=== PATIENT | female | born 1965 | race Caucasian/White ===

== ENCOUNTER 2019-07-15 06:54 | Day surgery (SDC) | payer MEDICAID ==
[~2019-07-15] VITALS: Ht 160 cm; Wt 86.2 kg
[2019-07-15] MEDS ORDERED: LIDOCAINE 2% 100 MG/5 ML UJET TP ONE (09:33)
[2019-07-15] MEDS ORDERED: fentaNYL 0.05 MG/ML VIAL ONE (09:33)
[2019-07-15] MEDS ORDERED: fentaNYL 0.05 MG/ML VIAL IVP ONE (10:25)
== END 2019-07-15 10:40 | disposition home or self-care (01) ==
LOC: MMU 06:54 → MDS 06:54
PROVIDERS: ATTEND Internal Medicine Gastroenterology
DX: R19.7 Diarrhea, unspecified (principal); E11.9 Type 2 diabetes mellitus without complications; E66.9 Obesity, unspecified; Z88.6 Allergy status to analgesic agent; Z79.84 Long term (current) use of oral hypoglycemic drugs; Z79.899 Other long term (current) drug therapy; Z68.33 Body mass index [BMI] 33.0-33.9, adult; Z90.49 Acquired absence of other specified parts of digestive tract; Z90.710 Acquired absence of both cervix and uterus
CPT/HCPCS: 45380; 88305; J3010

== ENCOUNTER 2022-02-18 22:10 | Inpatient (IN) | payer MEDICAID, OTHER ==
[~2022-02-18] VITALS: Ht 162.6 cm; Wt 72.6 kg
[2022-02-18 22:10] VITALS: BP 117/62
--- NOTE | 2022-02-18 22:10 | NUR ---
TO BED 10 BIBA WITH C/O GENERAL WEAKNESS WHILE AT WORK. PT HAD BEEN ASSISTED TO FLOOR. PT IS NOW VERY DROWSY, ANSWERS QUWSTIONS SLOWLY. SL INACT TO LEFT HAND. PMH : HTN, DM, HIGH CHOLESTEROL
--- NOTE | 2022-02-18 22:39 | NUR ---
Dr. Lewis examining patient.
[2022-02-18] MEDS ORDERED: NACL 0.9% 1,000 ML IV ONE (22:45)
--- NOTE | 2022-02-18 22:49 | NUR ---
EKG DONE, LAB AT BEDSIDE
--- NOTE | 2022-02-18 22:58 | NUR ---
XRAY AT BEDSIDE
--- NOTE | 2022-02-18 22:58 | NUR ---
Dr. Lewis examining patient.
[2022-02-18 23:03] LABS: BASOPHILS # (AUTO) 0.1 K/uL (0.00-0.22); BASOPHILS % (AUTO) 0.9 % (0.0-2.0); EOSINOPHILS # (AUTO) 0.2 K/uL (0-0.4); EOSINOPHILS % (AUTO) 2.3 % (0.0-4.0); LYMPHOCYTES % (AUTO) 26.7 % (20.5-51.1); MEAN CORPUSCULAR HEMOGLOBIN 29 pg (27-31); MEAN CORPUSCULAR HGB CONC 33 g/dL (33-37); MEAN CORPUSCULAR VOLUME 85.5 fL (80-94); MONOCYTES # (AUTO) 0.4 K/uL (0.8-1.0); MONOCYTES % (AUTO) 5.6 % (1.7-9.3); NEUTROPHILS # (AUTO) 4.7 K/uL (1.8-7.7); NEUTROPHILS % (AUTO) 64.5 % (42.2-75.2); PLATELET COUNT (AUTO) 265 K/uL (140-450); RED CELL DISTRIBUTION WIDTH 13.5 % (11.6-13.7); WHITE BLOOD COUNT (AUTO) 7.4 K/uL (4.8-10.8)
[2022-02-18 23:20] LABS: ALBUMIN 3.3 g/dL (3.4-5.0); ANION GAP 11.1 (8-16); ASPARTATE AMINOTRANSFERASE 11 U/L (15-37); CARBON DIOXIDE 27.7 mmol/L (21-32); CHLORIDE 104 mmol/L (98-107); CREATININE 0.8 mg/dL (0.6-1.3); GFR ARICAN-AMERICAN 95 mL/min (>90); GLUCOSE 260 mg/dL (74-106); LIPASE 163 U/L (73-393); POTASSIUM 3.8 mmol/L (3.5-5.1); SODIUM SERUM 139 mmol/L (136-145); TOTAL BILIRUBIN 0.2 mg/dL (0.0-1.0); UREA NITROGEN, BLOOD 13 mg/dL (7-18)
--- NOTE | 2022-02-18 23:23 | NUR ---
BACK TO BED AND MADE COMFORTABLE
[2022-02-19] MEDS ORDERED: VALS40TA3 PO (00:53)
[2022-02-19] MEDS ORDERED: SITA100T8 PO (00:54)
[2022-02-19] MEDS ORDERED: CARV6.25 PO (00:54)
--- NOTE | 2022-02-19 01:00 | NUR ---
RESTING QUIETLY WITH SON AT BEDSIDE
--- NOTE | 2022-02-19 02:00 | NUR ---
RECEIVED PATIENT FROM ER, PATIENT IS AWAKE,ALERT AND ORIENTED. DENIES PAIN AT THIS TIME. NOTED GENERALIZED WEAKNESS. NO ACUTE RESPIRATORY DISTRESS NOTED. SKIN WARM AND DRY TO TOUCH. IV TO THE LEFT HAND #20 INTACT AND PATENT. ORIENTED PT TO MST SET UP. BED IN THE LOWEST AND LOCKED POSITION FOR SAFETY, CALL LIGHT WITHIN REACH. WILL CONTINUE TO MONITOR.
--- NOTE | 2022-02-19 02:00 | NUR ---
Patient will be admitted to care of Partha. Admited to Dr mina. Will go to room 105b. Belongings list completed. Report to Partha NUNEZ.
[2022-02-19 02:53] VITALS: BP 110/53
--- NOTE | 2022-02-19 03:25 | NUR ---
COLLECTED URINE AND SENT TO THE LAB ORDERED.
--- NOTE | 2022-02-19 03:50 | NUR ---
PAGEAspen HERNÁNDEZ FOR ADMITTING ORDERS.
[2022-02-19 03:54] LABS: APPEARANCE,URINE CLEAR (CLEAR); BILIRUBIN,URINE NEGATIVE (NEGATIVE); BLOOD, URINE NEGATIVE (NEGATIVE); COLOR,URINE YELLOW (YELLOW); LEUKOCYTE ESTERASE ,URINE NEGATIVE (NEGATIVE); NITRITE, URINE NEGATIVE (NEGATIVE); UGLUCOSE 2+ (NEGATIVE)
[2022-02-19 04:00] VITALS: BP 109/59
--- NOTE | 2022-02-19 04:59 | NUR ---
PATIENT ASLEEP. BREATHING EVEN AND UNLABORED. CALL LIGHT IN REACH.
--- NOTE | 2022-02-19 05:25 | NUR ---
NO CALL BACK FROM MD, WILL CALL AGAIN.
--- NOTE | 2022-02-19 06:32 | NUR ---
PATIENT IS ASLEEP. ALL NEEDS ATTENDED TO. NO DISTRESS NOTED. SAFETY PRECAUTIONS MAINTAINED DURING THE SHIFT, BED ALARM ON, CALL LIGHT REMAINED WITHIN REACH. WILL ENDORSE CARE TO AM RN.
[2022-02-19 07:04] LABS: BASOPHILS % (AUTO) 0.7 % (0.0-2.0); EOSINOPHILS # (AUTO) 0.1 K/uL (0-0.4); EOSINOPHILS % (AUTO) 2.1 % (0.0-4.0); HEMOGLOBIN 12.6 g/dL (12.0-16.0); LYMPHOCYTES # (AUTO) 2.2 K/uL (2.5-16.5); MEAN CORPUSCULAR HEMOGLOBIN 28 pg (27-31); MEAN CORPUSCULAR HGB CONC 33 g/dL (33-37); MEAN CORPUSCULAR VOLUME 85.7 fL (80-94); MONOCYTES # (AUTO) 0.6 K/uL (0.8-1.0); MONOCYTES % (AUTO) 8.5 % (1.7-9.3); NEUTROPHILS # (AUTO) 3.7 K/uL (1.8-7.7); NEUTROPHILS % (AUTO) 55.7 % (42.2-75.2); PLATELET COUNT (AUTO) 270 K/uL (140-450); RED BLOOD CELL COUNT(AUTO) 4.43 MIL/uL (4.20-5.40); RED CELL DISTRIBUTION WIDTH 13.4 % (11.6-13.7); WHITE BLOOD COUNT (AUTO) 6.7 K/uL (4.8-10.8)
[2022-02-19 07:06] LABS: ANION GAP 8.8 (8-16); CARBON DIOXIDE 29.2 mmol/L (21-32); CREATININE 0.6 mg/dL (0.6-1.3)
--- NOTE | 2022-02-19 07:39 | NUR ---
GOT REPORT FROM THE NIGHT NURSE , PT SLEEPING BREATHING EASY.[id number]
[2022-02-19 08:00] VITALS: BP 100/58
[2022-02-19] MEDS ORDERED: POTASSIUM CHLORIDE 10 MEQ TABER PO PRN (09:15)
[2022-02-19] MEDS ORDERED: MAG SULF 2000 MG/WATER PREMIX 50 ML IV PRN (09:15)
[2022-02-19] MEDS ORDERED: MECLIZINE 25 MG TAB PO PRN ×2 (09:15→13:10)
--- NOTE | 2022-02-19 11:56 | NUR ---
ASSUMED CARE OVER THIS PT AT THIS TIME.
[2022-02-19 12:00] VITALS: BP 110/65
--- NOTE | 2022-02-19 12:14 | NUR ---
PATIENT HAS BEEN SCREENED AND CATEGORIZED MODERATE NUTRITION RISK. PATIENT WILL BE SEEN WITHIN 3-5 DAYS OF ADMISSION. / [address]
--- NOTE | 2022-02-19 12:26 | NUR ---
PT COMPLAINING OF PAIN. DR MONDRAGON MADE AWARE. INFORMED PT THAT IS WORKING ON PAIN MEDS. PT STATED "I HAVE PAIN, BUT I DONT WANT MEDICATION AT THIS TIME, MEDICATION IS A BANDAID. I JUST WANT TO KNOW WHAT IS WRONG WITH ME". INFORMED PT THAT THERE IS A CONSULT WITH NEUROLOGIST. PT STATED "OK THANK YOU".
[2022-02-19] MEDS ORDERED: INSULIN LISPRO SLIDING SCALE 100 UNITS/ML VIAL SUBQ PRN (13:15)
[2022-02-19] MEDS ORDERED: DEXTROSE 50% 50 ML SYR IVP PRN (13:15)
--- NOTE | 2022-02-19 14:26 | NUR ---
ATTEMPTED TO SEE PATIENT FOR PHYSICAL THERAPY EVALUATION HOWEVER HAVING ULTRASOUND DONE AT THIS TIME. WILL FOLLOW UP TOMORROW IF APPROPRIATE; RN AWARE.
--- NOTE | 2022-02-19 14:27 | NUR ---
DC PLANNING: THE PATIENT PRESENTED FROM HOME WITH C/O PROGRESSIVE GENERALIZED WEAKNESS AND POSSIBLE SYNCOPAL EPISODE. H/O DM, GLUCOSE 260, TROPONIN WNL'S. EKG NEGATIVE FOR ACUTE ISCHEMIA, CT HEAD NEGATIVE FOR FINDINGS, ORDER FOR NEUROLOGY CONSULT. CM SPOKE WITH THE PATIENT AND HER SON DAYANARA AT BEDSIDE AND CONFIRMED HER ADDRESS AND PHONE NUMBER. SHE LIVES IN A SINGLE STORY HOUSE WITH HER SON AND IS INDEPENDENT IN ALL ACTIVITIES. HAS DME OF A GLUCOMETER AND SELF ADMINISTERS A WEEKLY INJECTION FOR HER DIABETES. 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 NO H/O HOME HEALTH OR HEALTH ISSUES ASIDE FROM DM , THE PATIENT SEES HER PMD ODESSA LIRA REGULARLY AND SAW HIM A WEEK AGO. DC NEEDS TO BE DECIDED BASED ON FINDINGS, ANTICIPATE THAT THE PATIENT WILL RETURN HOME WITH FAMILY. CM WILL FOLLOW.
--- NOTE | 2022-02-19 15:58 | NUR ---
WENT TO CHECK ON PT. PT RESTING AT THIS TIME. RESPIRATIONS ARE EVEN AND UNLABORED. WILL CONTINUE TO MONITOR.
[2022-02-19 16:00] VITALS: BP 110/52
[2022-02-19] MEDS: BLOOD GLUCOSE MONITORING 1 DEV DEV FS SCH ×2 (17:23→21:28)
--- NOTE | 2022-02-19 17:24 | NUR ---
PT BLOOD GLUCOSE WAS 167. INFORMED PT THAT PER SLIDING SCALE, INSULIN COVERAGE NEEDED. PT REFUSED. 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 IT ANTAGONIZES THE BODY. I DONT WANT IT".
--- NOTE | 2022-02-19 19:33 | NUR ---
ENDORSED PT TO AS400 PROGRAMMER NURSE FOR CONTINUITY OF CARE. PT IS STABLE.
--- NOTE | 2022-02-19 19:34 | NUR ---
RECD. RESTING IN BED, AWAKE, A/OX4. CONVERSING WITH VISITOR AT THE BEDSIDE. RESPIRATION EVEN AND UNLABORED. IV SALINE LOCK AT THE LEFT HAND G20, PATENT AND INTACT. SAFETY MEASURES ENFORCED. BED IN THE LOWEST POSITION, SIDE RAILS UP AND CALL LIGHT IN REACH. INSTRUCTED TO CALL NURSE WHEN NEEDING HELP TO GET OUT OF BED. VERBALIZED UNDERSTANDING. ON PURE WICK CONNECTED TO SUCTION MACHINE DRAINING CLEAR YELLOW URINE. DENIES PAIN 0/10.
[2022-02-19 20:00] VITALS: BP 125/67
[2022-02-19] MEDS: carvediloL 6.25 MG TAB PO SCH (21:00)
--- NOTE | 2022-02-19 21:34 | NUR ---
SCHEDULED MEDICATION ADMINISTERED. REFUSED HUMALOG SLIDING SCALE. EXPLAINED ITS IMPORTANCE BUT INSISTED SHE WANTS TO JUST TAKE JANUVIA.
[2022-02-20] VITALS: BP 110/57
--- NOTE | 2022-02-20 | NUR ---
SLEEPING COMFORTABLY IN BED, RESPIRATION EVEN AND UNLABORED, CALL LIGHT IN REACH.
[2022-02-20 04:00] VITALS: BP 114/66
--- NOTE | 2022-02-20 04:00 | NUR ---
VITAL SIGN REMAIN STABLE. SINUS RHYTHM ON TELE MONITORING.
[2022-02-20] MEDS: BLOOD GLUCOSE MONITORING 1 DEV DEV FS SCH ×4 (06:52→21:24)
--- NOTE | 2022-02-20 06:52 | NUR ---
BS -188. REFUSED HUMALOG FOR INSULIN COVERAGE. ASYMPTOMATIC.
--- NOTE | 2022-02-20 07:15 | NUR ---
RECEIVED REPORT FROM ELECTRICAL ACCESSORIES II ASSEMBLER NURSE FOR CONTINUITY OF CARE, POC DISCUSSED. PT IS ASLEEP IN BED WITH NO ACUTE S/S OF DISTRESS, ON RA WITH CHEST RISING AND FALLING EVEN AND UNLABORED. IV ON LEFT HAND 20G SALINE LOCK. ON TELE MONITOR, SR. ALL SAFETY MEASURES IN PLACE, CALL LIGHT WITHIN REACH. WILL CONTINUE TO MONITOR.
--- NOTE | 2022-02-20 07:15 | NUR ---
ENDORSED TO AM SHIFT NURSE FOR CONTINUITY OF CARE.
[2022-02-20 07:28] LABS: BASOPHILS % (AUTO) 0.6 % (0.0-2.0); EOSINOPHILS # (AUTO) 0.2 K/uL (0-0.4); EOSINOPHILS % (AUTO) 2.2 % (0.0-4.0); HEMATOCRIT 38.4 % (36-48); HEMOGLOBIN 12.7 g/dL (12.0-16.0); LYMPHOCYTES # (AUTO) 2.6 K/uL (2.5-16.5); LYMPHOCYTES % (AUTO) 33.9 % (20.5-51.1); MEAN CORPUSCULAR HEMOGLOBIN 29 pg (27-31); MEAN CORPUSCULAR HGB CONC 33 g/dL (33-37); MEAN CORPUSCULAR VOLUME 86.2 fL (80-94); MONOCYTES # (AUTO) 0.4 K/uL (0.8-1.0); MONOCYTES % (AUTO) 5.5 % (1.7-9.3); NEUTROPHILS # (AUTO) 4.4 K/uL (1.8-7.7); NEUTROPHILS % (AUTO) 57.8 % (42.2-75.2); PLATELET COUNT (AUTO) 266 K/uL (140-450); RED BLOOD CELL COUNT(AUTO) 4.45 MIL/uL (4.20-5.40); RED CELL DISTRIBUTION WIDTH 13.7 % (11.6-13.7); WHITE BLOOD COUNT (AUTO) 7.7 K/uL (4.8-10.8)
[2022-02-20 08:00] VITALS: BP 120/64
[2022-02-20 08:03] LABS: ANION GAP 9.1 (8-16); CREATININE 0.8 mg/dL (0.6-1.3); MAGNESIUM 1.9 mg/dL (1.8-2.4); PHOSPHORUS 3.2 mg/dL (2.5-4.9); POTASSIUM 4.1 mmol/L (3.5-5.1)
--- NOTE | 2022-02-20 09:00 | NUR ---
ROLY MEDICATION ADMINISTERED PER MD ORDER, PT TOLERATED ADMINISTRATION. DM MEDICATION NOT ADMINISTERED DUE TO PT TAKING THE MEDICATION ON HER OWN. EDUCATED PT ON IMPORTANCE OF NOT TAKING MEDICATION THAT WE DO NOT GIVE IN ORDER TO KEEP TRACK MEDICATION AND KNOW WHAT THE PATIENT HAS INGESTED. PT VERBALIZED UNDERSTANDING. LUNG SOUNDS CLEAR, ON ROOM AIR, STATES HER HEAD AND BACK HURTS BUT DOES NOT WANT ANY PAIN MEDICATION. SITTING UP IN BED EATING BREAKFAST WITH A PUREE WICK CONNECTED TO SUCTION. CLEAR YELLOW URINE. ALL SAFETY MEASURES IN PLACE, CALL LIGHT WITHIN REACH. WILL CONTINUE TO MONITOR.
[2022-02-20] MEDS: VALSARTAN 80 MG TAB PO SCH (09:02)
[2022-02-20] MEDS: carvediloL 6.25 MG TAB PO SCH ×2 (09:03→21:00)
--- NOTE | 2022-02-20 10:06 | NUR ---
CALLED SOC FOR TELEPHSYCH CONSULT.
--- NOTE | 2022-02-20 11:28 | NUR ---
BLOOD GLUCOSE IS 142, NO INSULIN COVERAGE NEEDED PER SLIDING SCALE. PT IS STABLE WITH NO ACUTE S/S OF DISTRESS. ALL SAFETY MEASURES IN PLACE, CALL LIGHT WITHIN REACH. WILL CONTINUE TO MONITOR.
--- NOTE | 2022-02-20 12:48 | NUR ---
PT IS STABLE IN BED WITH NO ACUTE S/S OF DISTRESS, FAMILY MEMBER AT BEDSIDE. ALL SAFETY MEASURES IN PLACE, CALL LIGHT WITHIN REACH. WILL CONTINUE TO MONITOR.
--- NOTE | 2022-02-20 14:28 | NUR ---
NEW SUCTION CANISTER PLACED FOR PUREE WICK SURGERY. PT REPORTS ALL OTHER NEEDS ARE CURRENTLY BEING MET. SON AT BEDSIDE. ALL SAFETY MEASURES IN PLACE, CALL LIGHT WITHIN REACH. WILL CONTINUE TO MONITOR
--- NOTE | 2022-02-20 15:00 | NUR ---
DISCHARGE INSTRUCTIONS WAS DISCUSSED WITH THE PATIENT AND SIGNED ALL THE DISCHARGED PAPERS. ALL PATIENT'S QUESTIONS ANSWERED. IV AND ARM BAND REMOVED. ALL PERSONNEL BELONGINGS GIVEN TO THE PATIENT. CHARGE NURSE WILL CALL THE UBER. PATIENT MADE AWARE REGARDING THE UBER. ALL NEEDS MET AND ANTICIPATED. Addendum: 02/20/22 at 1610 by Radha Napier RN WRONG PT
--- NOTE | 2022-02-20 16:18 | NUR ---
CONSENT OBTAINED FROM DR JACKSON, PT REFUSED IV INSERTION. STATES SHE WANTS TO GET HER IV INSERTED TOMORROW. NOTIFIED DR JACKSON, DR JACKSON STATED THAT IS FINE. ORDER FOR NPO AFTER MIDNIGHT PLACED
--- NOTE | 2022-02-20 17:00 | NUR ---
PATIENT BLOOD SUGAR FOR 1700 IS 156 MG/DL, HUMALOG INSULIN 2 UNITS NOT GIVEN DUE TO PATIENT REFUSED. RISK AND BENEFITS EXPLAINED TO THE PATIENT BUT PATIENT STILL REFUSED.
--- NOTE | 2022-02-20 17:23 | NUR ---
PT ON PHONE WITH PSYCH CONSULT
--- NOTE | 2022-02-20 17:27 | NUR ---
RADIOLOGY AWARE OF PTS REFUSAL TO GET IV IN AC INSERTED AND THAT PT STATED SHE WILL BE WILLING TO GET CONTRAST SCAN TOMORROW MORNING
--- NOTE | 2022-02-20 17:36 | NUR ---
PSYCH CONSULT STATED PT APPEARS TO BE BACK TO BASELINE, AND STATED HE HAS NO RECOMMENDATIONS. MD NOTIFIED OF ASSESSMENT.
--- NOTE | 2022-02-20 18:34 | NUR ---
PATIENT STATED THAT SHE WANTS THE PUREE WICK TO BE CONNECTED AT NIGHT TIME DUE TO THE SON IS ASSISTING THE PATIENT GOING TO THE RESTROOM. SON WOULD NOT BE AT BEDSIDE AT NIGHT.
--- NOTE | 2022-02-20 18:54 | NUR ---
ALL NEEDS HAVE BEEN MET THROUGHOUT THE SHIFT, PT WILL BE ENDORSED TO ELASTIC ATTACHER ZIGZAG NURSE.
--- NOTE | 2022-02-20 20:00 | NUR ---
PATIENT IS AWAKE, AOX4. ON ROOM AIR. NO ACUTE DISTRESS NOTED. RESPIRATION EVEN UNLABORED. IV ACCESS ON THE LEFT HAND 20 GAUGE SALINE LOCK. ALL SAFETY PRECAUTIONS ARE IN PLACE. NO COMPLAINTS OF PAIN. CALL LIGHT WITHIN REACH.
--- NOTE | 2022-02-20 21:24 | NUR ---
BLOOD SUGAR WAS 163, REFUSED INSULIN COVERAGE.
--- NOTE | 2022-02-20 21:26 | NUR ---
ADMINISTERED SCHEDULED MEDICATION PER MD ORDER.
[2022-02-21] VITALS: BP 100/57
--- NOTE | 2022-02-21 02:30 | NUR ---
PATIENT IS SLEEPING. CHEST RISE AND FALL SYMMETRICALLY. NO LABORED BREATHING. CALL LIGHT WITHIN REACH.
--- NOTE | 2022-02-21 02:55 | NUR ---
PATIENT IS SLEEPING. CHEST RISE AND FALL SYMMETRICALLY. NO S/S OF RESPIRATORY DISTRESS. CALL LIGHT WITHIN REACH.
[2022-02-21 07:01] LABS: BASOPHILS # (AUTO) 0.1 K/uL (0.00-0.22); BASOPHILS % (AUTO) 0.8 % (0.0-2.0); EOSINOPHILS # (AUTO) 0.2 K/uL (0-0.4); EOSINOPHILS % (AUTO) 2.4 % (0.0-4.0); HEMATOCRIT 39.7 % (36-48); HEMOGLOBIN 13.4 g/dL (12.0-16.0); LYMPHOCYTES # (AUTO) 2.5 K/uL (2.5-16.5); LYMPHOCYTES % (AUTO) 33.1 % (20.5-51.1); MEAN CORPUSCULAR HEMOGLOBIN 29 pg (27-31); MEAN CORPUSCULAR HGB CONC 34 g/dL (33-37); MEAN CORPUSCULAR VOLUME 84.5 fL (80-94); MONOCYTES # (AUTO) 0.5 K/uL (0.8-1.0); MONOCYTES % (AUTO) 6.7 % (1.7-9.3); NEUTROPHILS # (AUTO) 4.3 K/uL (1.8-7.7); PLATELET COUNT (AUTO) 276 K/uL (140-450); RED BLOOD CELL COUNT(AUTO) 4.69 MIL/uL (4.20-5.40); RED CELL DISTRIBUTION WIDTH 13.6 % (11.6-13.7); WHITE BLOOD COUNT (AUTO) 7.5 K/uL (4.8-10.8)
[2022-02-21 07:18] LABS: MAGNESIUM 1.9 mg/dL (1.8-2.4); PHOSPHORUS 3.6 mg/dL (2.5-4.9)
--- NOTE | 2022-02-21 07:25 | NUR ---
ENDORSED PATIENT TO AM NURSE FOR CONTINUITY OF CARE. PT MAINTAINED NPO. NO FEVER. STABLE.
--- NOTE | 2022-02-21 07:26 | NUR ---
RECEIVED REPORT FROM LINUX SUPPORT ENGINEER NURSE FOR CONTINUITY OF CARE. PT IN BED RESTING AT THIS TIME. RESPIRATIONS ARE EVEN AND UNLABORED ON ROOM AIR. NO SIGNS OF DISTRESS NOTED. PT IS ALERT AND ORIENTED X4, ABLE TO FOLLOW COMMANDS, ABLE TO VERBALIZE NEEDS. PT IS AMBULATORY WITH ASSISTANCE. PT IS CONTINENT OF BOWEL AND BLADDER. PT HAS IV TO L HAND, 20G, SALINE LOCKED. CALL LIGHT WITHIN REACH. ALL SAFETY MEASURES IN PLACE. WILL CONTINUE TO MONITOR.
[2022-02-21] MEDS: BLOOD GLUCOSE MONITORING 1 DEV DEV FS SCH ×3 (07:30→17:11)
[2022-02-21 07:44] LABS: ANION GAP 11.5 (8-16); CARBON DIOXIDE 23.5 mmol/L (21-32); CREATININE 0.7 mg/dL (0.6-1.3)
[2022-02-21 08:00] VITALS: BP 102/61
--- NOTE | 2022-02-21 08:00 | NUR ---
Patient's Plan of Care was discussed and reviewed with CATALOGUE COMPILER: ANGEL. WILL CONTINUE CURRENT POC.
[2022-02-21] MEDS: carvediloL 6.25 MG TAB PO SCH (09:00)
[2022-02-21] MEDS: VALSARTAN 80 MG TAB PO SCH (09:00)
--- NOTE | 2022-02-21 10:23 | NUR ---
DID ROUNDS ON PT. PT RESTING AT THIS TIME. FAMILY AT BEDSIDE. RESPIRATIONS ARE EVEN AND UNLABORED.
--- NOTE | 2022-02-21 12:05 | NUR ---
MOSQUITO SPRAYER AT BEDSIDE ALONG WITH NURSE, TO DO ECHO WITH AGITATED SALINE ORDERED. WILL CONTINUE TO MONITOR.
--- NOTE | 2022-02-21 12:43 | NUR ---
PT BLOOD GLUCOSE WAS 136. NO INSULIN COVERAGE NEEDED PER SLIDING SCALE. WILL CONTINUE TO MONITOR.
--- NOTE | 2022-02-21 13:56 | NUR ---
DID ROUNDS ON PT. PT SITTING UP IN BED WITH FAMILY AT BEDSIDE. NO COMPLAINTS OF PAIN OR DISCOMFORT NOTED. WILL CONTINUE TO MONITOR.
--- NOTE | 2022-02-21 15:10 | NUR ---
PT PRESSED CALL LIGHT. ASKING NURSE IF SHE CAN SPEAK WITH DR MONDRAGON, STATES SHE WANTS TO GO HOME. PT STATES "I AM NOT DOING ANYTHING HERE JUST WASTING MY TIME. I CAN FOLLOW UP WITH ANYTHING ELSE THE DR WANTS BUT I CAN DO IT OUT PATIENT. I FEEL LIKE ALL IM DOING IS MY INSURANCE AND BILLS ARE GOING UP. PLEASE TALK TO THE DR AND ASK IF I CAN GO HOME". DR MONDRAGON MADE AWARE.
--- NOTE | 2022-02-21 15:43 | NUR ---
PHYSICAL THERAPY CO-SIGN The Physical Therapy Progress Notes documented by Parachute Panel Joiner have been reviewed. Reviewed/Co-Signed by: Irais Samuel Documentation Done by: EL LAM PTA Addendum: 02/21/22 at 1543 by Irais Samuel PT Amended: Links added.
[2022-02-21 16:00] VITALS: BP 123/76
[2022-02-21] MEDS ORDERED: MECL-231 PO (16:36)
[2022-02-21 16:49] VITALS: BP 102/61
--- NOTE | 2022-02-21 17:36 | NUR ---
DISCHARGE ORDER IN PLACE. WENT OVER DISCHARGE PAPERWORK WITH PT. ANSWERED ALL QUESTIONS. PT SIGNED ALL PAPERWORK. REMOVED IV. IV CATHETER INTACT. PT STATES HER FAMILY WILL COME AND PICK HER UP AT 1900. CALL LIGHT WITHIN REACH. ALL SAFETY MEASURES IN PLACE. WILL CONTINUE TO MONITOR.
--- NOTE | 2022-02-21 18:49 | NUR ---
PT DISCHARGED HOME WITH SON. WRIST BAND REMOVED. ALL BELONGINGS TAKEN UPON DISCHARGE.
== END 2022-02-21 18:50 | disposition home or self-care (01) | DRG 74 ==
LOC: MED 22:10 → MTU 02-19 00:43
DX: G90.8 Other disorders of autonomic nervous system (principal); E44.0 Moderate protein-calorie malnutrition; E11.9 Type 2 diabetes mellitus without complications; E78.5 Hyperlipidemia, unspecified; I10 Essential (primary) hypertension; E83.51 Hypocalcemia; Z20.822 Contact with and (suspected) exposure to COVID-19; Z68.27 Body mass index [BMI] 27.0-27.9, adult; Z90.710 Acquired absence of both cervix and uterus; Z88.8 Allergy status to other drugs, medicaments and biological substances; Z79.899 Other long term (current) drug therapy
CPT/HCPCS: 36415; 70450; 71045; 71270; 80048; 80053; 81003; 82140; 82948; 83690; 83735; 84100; 84484; 85025; 87081; 93005; 93308; 93880; 96360; 97110; 97116; 97163-GP; 97530; 99285; J1644; J1815; J7030; Q0092; Q9967

== ENCOUNTER 2022-08-15 18:19 | Emergency (ER) | payer OTHER ==
[~2022-08-15] VITALS: Ht 160 cm; Wt 83.0 kg
[~2022-08-15 18:19] MED LIST: CARV6.25 PO; MECL-231 PO; SITA100T8 PO; VALS40TA3 PO
[2022-08-15 18:42] VITALS: BP 120/73
--- NOTE | 2022-08-15 19:13 | NUR ---
UNIQUE NICHOLS IN TRIAGE FOR EVAL
--- NOTE | 2022-08-15 19:26 | NUR ---
[place] branch in EDM - 08/15/22 at 1932 by MANUELA PATIENT LEFT WITHOUT BEING SEEN BY DR. SMITH. NO FURTHER CARE PROVIDED FOR PATIENT.
--- NOTE | 2022-08-15 19:28 | NUR ---
PT CALLED BY [employer] FOR XRAY, NO ANSWER.
--- NOTE | 2022-08-15 19:29 | NUR ---
CALLED NUMBER ON FILE, NO ANSWER
--- NOTE | 2022-08-15 19:34 | NUR ---
PT TAKEN TO BED 4
[2022-08-15] MEDS ORDERED: ACETAMINOPHEN 325 MG TAB PO ONE (19:45)
[2022-08-15 19:50] LABS: BASOPHILS # (AUTO) 0.1 K/uL (0.00-0.22); BASOPHILS % (AUTO) 0.9 % (0.0-2.0); EOSINOPHILS # (AUTO) 0.1 K/uL (0-0.4); EOSINOPHILS % (AUTO) 1.7 % (0.0-4.0); HEMATOCRIT 37.5 % (36-48); HEMOGLOBIN 12.6 g/dL (12.0-16.0); LYMPHOCYTES # (AUTO) 2.6 K/uL (2.5-16.5); LYMPHOCYTES % (AUTO) 36.4 % (20.5-51.1); MEAN CORPUSCULAR HEMOGLOBIN 29 pg (27-31); MEAN CORPUSCULAR HGB CONC 34 g/dL (33-37); MEAN CORPUSCULAR VOLUME 85.3 fL (80-94); MONOCYTES # (AUTO) 0.5 K/uL (0.8-1.0); MONOCYTES % (AUTO) 6.9 % (1.7-9.3); NEUTROPHILS # (AUTO) 3.8 K/uL (1.8-7.7); NEUTROPHILS % (AUTO) 54.1 % (42.2-75.2); PLATELET COUNT (AUTO) 259 K/uL (140-450); RED CELL DISTRIBUTION WIDTH 13.5 % (11.6-13.7); WHITE BLOOD COUNT (AUTO) 7.1 K/uL (4.8-10.8)
--- NOTE | 2022-08-15 20:01 | NUR ---
X-Ray at bedside.
[2022-08-15 20:11] LABS: ALBUMIN 3.5 g/dL (3.4-5.0); ANION GAP 9.6 (8-16); CARBON DIOXIDE 33.2 mmol/L (21-32); CREATININE 0.7 mg/dL (0.6-1.3); POTASSIUM 3.8 mmol/L (3.5-5.1); TOTAL BILIRUBIN 0.2 mg/dL (0.0-1.0)
--- NOTE | 2022-08-15 20:14 | NUR ---
UNIQUE NICHOLS AT BEDSIDE
[2022-08-15] MEDS ORDERED: ONDANSETRON 4 MG ODT PO SCH (20:20)
[2022-08-15] MEDS ORDERED: PROM118S5 PO (21:06)
[2022-08-15] MEDS ORDERED: ACET-8905 PO ×2 (21:06→21:11)
[2022-08-15] MEDS ORDERED: ONDA-188 PO (21:06)
--- NOTE | 2022-08-15 21:29 | NUR ---
Patient does not wish to proceed with medical care recommended by . Patient given information related to possible complications, up to and including , which could occur as a result of leaving hospital at this time. Patient verbalizes understanding of risks involved leaving against medical advice. Patient has signed AMA form.
--- NOTE | 2022-08-15 21:30 | NUR ---
Patient discharged with v/s stable. Written and verbal after care instructions given and explained. Patient alert, oriented and verbalized understanding of instructions. Ambulatory with steady gait. All questions addressed prior to discharge. ID band removed. Patient advised to follow up with PMD. Rx of HYDROCODONE/ACETAMINOPHEN, ZOFRAN AND PROMETHAZINE given. Patient educated on indication of medication including possible reaction and side effects. Opportunity to ask questions provided and answered. LEFT AMA
[2022-08-15 21:31] VITALS: BP 114/65
== END 2022-08-15 21:30 | disposition left against medical advice (07) ==
LOC: MED 18:19
DX: B34.9 Viral infection, unspecified (principal); Z20.822 Contact with and (suspected) exposure to COVID-19; I10 Essential (primary) hypertension; E11.9 Type 2 diabetes mellitus without complications; Z79.4 Long term (current) use of insulin; Z79.899 Other long term (current) drug therapy; Z79.82 Long term (current) use of aspirin
CPT/HCPCS: 36415; 71045; 80053; 83690; 84484; 85025; 87426; 87804; 99285; Q0092; Q0162